=== PATIENT | male | born 1965 | race Caucasian/White ===

== ENCOUNTER 2020-04-22 12:18 | Observation (INO) | payer BC ==
[~2020-04-22] VITALS: Ht 172 cm; Wt 75.4 kg
--- OUTSIDE RECORDS SUMMARY | 2020-04-22 13:00 | XMS REPORT | Continuity of Care Document ---
Author Organization Unknown Address Unknown Phone Unavailable Allergies There is no data. Medications There is no data. Problems Date Dx Coded Attending Type Code Diagnosis Diagnosed By 11/05/2014 Ot 592.0 04/07/2015 Ot 592.0 09/20/2015 Ot 592.0 02/10/2016 Ot 592.0 CALC ULUS OF KIDNEY 02/10/2016 Ot 592.0 CALC ULUS OF KIDNEY 04/24/2018 Ot 592.0 CALC ULUS OF KIDNEY Procedures There is no data. Results There is no data. Encounters ACCT No. Visit Date/Time Discharge Status Pt. Type Provider Facility Loc./Unit Complaint [id number] 04/22/2020 12:20:[address] Emergency CEDRIC ARAIZA, BRIGHT Ambrosio [facility] ER R LEG RED SWOLLEN [id number] 01/30/2013 07:02:00 Document Registration
[2020-04-22 13:17] LABS: BASOPHILS % (AUTO) 0 % (0-10); EOSINOPHILS # (AUTO) 0.3 10^3/uL (0.0-0.3); EOSINOPHILS % (AUTO) 2 % (0-10); HEMATOCRIT 40 % (40-54); HEMOGLOBIN 13.7 G/DL (13.3-17.7); LYMPHOCYTES # (AUTO) 1.9 X 10^3 (1.0-4.0); LYMPHOCYTES % (AUTO) 18 % (12-44); MEAN CORPUSCULAR HEMOGLOBIN 30 PG (25-34); MEAN CORPUSCULAR HGB CONC 34 G/DL (32-36); MEAN CORPUSCULAR VOLUME 88 FL (80-99); MEAN PLATELET VOLUME 11.4 FL (7.4-10.4); MONOCYTES # (AUTO) 1.2 X 10^3 (0.0-1.0); MONOCYTES % (AUTO) 12 % (0-12); NEUTROPHILS # (AUTO) 7.2 X 10^3 (1.8-7.8); NEUTROPHILS % (AUTO) 68 % (42-75); PLATELET COUNT 228 10^3/uL (130-400); RED CELL DISTRIBUTION WIDTH 12.8 % (10.0-14.5); WHITE BLOOD COUNT 10.7 10^3/uL (4.3-11.0)
[2020-04-22 13:20] LABS: ALBUMIN 3.8 GM/DL (3.2-4.5); CHLORIDE 105 MMOL/L (98-107); POTASSIUM 3.9 MMOL/L (3.6-5.0); SODIUM 142 MMOL/L (135-145)
[2020-04-22 13:21] LABS: CALCIUM 8.9 MG/DL (8.5-10.1)
[2020-04-22 13:23] LABS: GLUCOSE 94 MG/DL (70-105); TOTAL PROTEIN 6.9 GM/DL (6.4-8.2)
[2020-04-22 13:24] LABS: CARBON DIOXIDE 26 MMOL/L (21-32)
[2020-04-22 13:25] LABS: BILIRUBIN,TOTAL 0.5 MG/DL (0.1-1.0)
[2020-04-22 13:26] LABS: ALKALINE PHOSPHATASE 86 U/L (40-136); CREATININE SERUM 1.04 MG/DL (0.60-1.30); GFR ESTIMATED > 60
[2020-04-22 13:27] LABS: BUN/CREATININE RATIO 13
[2020-04-22 13:29] LABS: ALANINE AMINOTRANSFERASE 62 U/L (0-55)
--- NOTE | 2020-04-22 13:31 | NUR ---
DR PATHAK HERE TO SEE PT
[2020-04-22] MEDS ORDERED: NS IV 1000 ML 1,000 ML IV SCH (13:43)
[2020-04-22] MEDS ORDERED: PIPERACILLIN/TAZOBACTAM (BULK) 4.5 GM in NS (IVPB) 100 ML IV ONE (14:00)
--- NOTE | 2020-04-22 14:00 | ED Lower Extremity ---
General Chief Complaint: Lower Extremity Stated Complaint: R LEG RED SWOLLEN Source: patient Exam Limitations: no limitations History of Present Illness Date Seen by Provider: Apr 22, 2020 Time Seen by Provider: 13:23 Initial Comments Patient presents ER by private conveyance with chief complaint that her 4 days ago he noticed some redness swelling heat and tenderness coming on the right hernandez. No drainage. He went to Dr. Johnson who put him on Rocephin and some type of cephalosporin pill. Be followed up yesterday with Dr. Thomas, General Surgery who lanced the wound but did not get any purulence out. Only to get sanguis drainage. Thought the wound looked like it might of been from a spider bite to put him on dapsone. Patient said it was getting worse spreading up his thigh and having some more pain today so he was directed to the ER by Dr. Thomas. Dr. Thomas came to the ER and saw the patient. He agrees redness and swelling is worse today than before. It is not circumferential. Patient does not have numbness or tingling in his foot. He has full range of motion of his toes. He does not have any significant medical history nor take any other medications besides the antibiotics. No fevers or chills nausea vomiting or diarrhea. Allergies and Home Medications Allergies Coded Allergies: No Known Drug Allergies (Unverified , 04/22/20) Patient Home Medication List Home Medication List Reviewed: Yes Review of Systems Constitutional: No chills, No diaphoresis, No fever, No malaise EENTM: No ear pain, No eye pain Respiratory: No cough, No short of breath Cardiovascular: No Hx of Intervention, No syncope, No vascular heart diseas Gastrointestinal: No abdominal pain, No constipation, No diarrhea, No nausea Genitourinary: No discharge, No dysuria Musculoskeletal: No back pain, No joint pain Skin: see HPI All Other Systems Reviewed Negative Unless Noted: Yes Past Axjxakh-Kkqyvf-Ztuyso Hx Patient Social History Alcohol Use: Denies Use Recreational Drug Use: No Smoking Status: Never a Smoker Recent Foreign Travel: No Contact w/Someone Who Travel: No Physical Exam Vital Signs Vital Signs - First Documented 04/22/20 12:30 Temp 36.7 Pulse 64 Resp 18 B/P (MAP) 130/81 (97) Pulse Ox 98 Capillary Refill : Height, Weight, BMI Height: '" Weight: lbs. oz. kg; BMI Method: General Appearance: WD/WN, mild distress HEENT: PERRL/EOMI, pharynx normal Cardiovascular: normal peripheral pulses, regular rate, rhythm Respiratory: no respiratory distress, no accessory muscle use Legs: left leg non-tender, left leg normal inspection, left leg normal range of motion, left leg no evidence of injury; right leg pain, right leg soft tissue tenderness, right leg swelling (the erythema with a previous incision site roughly 1 cm on the anterior hernandez mid shaft right leg. Fluctuance palpable but no purulence expressed. Erythema marked with a marker and spreading up posterior thigh approximately 4-5 cm.) Progress/Results/Core Measures Results/Orders Lab Results Laboratory Tests Test 04/22/20 12:55 Range/Units White Blood Count 10.7 4.3-11.0 10^3/uL Red Blood Count 4.59 4.35-5.85 10^6/uL Hemoglobin 13.7 13.3-17.7 G/DL Hematocrit 40 40-54 % Mean Corpuscular Volume 88 80-99 FL Mean Corpuscular Hemoglobin 30 25-34 PG Mean Corpuscular Hemoglobin Concent 34 32-36 G/DL Red Cell Distribution Width 12.8 10.0-14.5 % Platelet Count 228 130-400 10^3/uL Mean Platelet Volume 11.4 H 7.4-10.4 FL Neutrophils (%) (Auto) 68 42-75 % Lymphocytes (%) (Auto) 18 12-44 % Monocytes (%) (Auto) 12 0-12 % Eosinophils (%) (Auto) 2 0-10 % Basophils (%) (Auto) 0 0-10 % Neutrophils # (Auto) 7.2 1.8-7.8 X 10^3 Lymphocytes # (Auto) 1.9 1.0-4.0 X 10^3 Monocytes # (Auto) 1.2 H 0.0-1.0 X 10^3 Eosinophils # (Auto) 0.3 0.0-0.3 10^3/uL Basophils # (Auto) 0.0 0.0-0.1 10^3/uL Sodium Level 142 135-145 MMOL/L Potassium Level 3.9 3.6-5.0 MMOL/L Chloride Level 105 98-107 MMOL/L Carbon Dioxide Level 26 21-32 MMOL/L Anion Gap 11 5-14 MMOL/L Blood Urea Nitrogen 14 7-18 MG/DL Creatinine 1.04 0.60-1.30 MG/DL Estimat Glomerular Filtration Rate > 60 BUN/Creatinine Ratio 13 Glucose Level 94 70-105 MG/DL Calcium Level 8.9 8.5-10.1 MG/DL Corrected Calcium 9.1 8.5-10.1 MG/DL Total Bilirubin 0.5 0.1-1.0 MG/DL Aspartate Amino Transf (AST/SGOT) 45 H 5-34 U/L Alanine Aminotransferase (ALT/SGPT) 62 H 0-55 U/L Alkaline Phosphatase 86 40-136 U/L Total Protein 6.9 6.4-8.2 GM/DL Albumin 3.8 3.2-4.5 GM/DL My Orders Orders - BRIGHT STEELE Cbc With Automated Diff (04/22/20 13:10) Comprehensive Metabolic Panel (04/22/20 13:10) Blood Culture (04/22/20 13:10) Ed Iv/Invasive Line Start (04/22/20 13:43) Ns Iv 1000 Ml (Sodium Chloride 0.9%) (04/22/20 13:43) Vital Signs/I&O 04/22/20 12:30 Temp 36.7 Pulse 64 Resp 18 B/P (MAP) 130/81 (97) Pulse Ox 98 Progress Progress Note : Time: 13:58 Progress Note Aseptic vital signs. She has been on 3 days of outpatient antibiotics including Rocephin. Plan to put him on vancomycin for MRSA coverage and Zosyn and observe him overnight. Internal Medicine can downgrade this in the morning if he is clinically improving. Labs are unremarkable. Departure Communication (Admissions) Time/Spoke to Admitting Phy: 13:50 Discussed the case with Dr. Campa and he agrees to observe the patient on antibiotics. Time/Spoke to Consulting Phy: 13:30 Dr. Thomas agrees to consult. He says he will check out to Dr. Stoney parham. Impression Primary Impression: Cellulitis and abscess of leg, except foot Disposition: ADMITTED INPATIENT Condition: Stable Admissions Decision to Admit Reason: Admit from ER (General) Decision to Admit/Date: Apr 22, 2020 Time/Decision to Admit Time: 13:30 Departure-Patient Inst. Referrals: NO,LOCAL PHYSICIAN (PCP/Family) Primary Care Physician BRIGHT STEELE Apr 22, 2020 14:00
[2020-04-22] MEDS: VANCOMYCIN INJECTION 750 MG in NS (IVPB) 250 ML IV SCH ×2 (14:04→15:22)
--- NOTE | 2020-04-22 14:31 | NUR ---
REPORT TO 4TH FLOOR RN
--- OUTSIDE RECORDS SUMMARY | 2020-04-22 14:47 | XMS REPORT | Continuity of Care Document ---
Author Organization Unknown Address Unknown Phone Unavailable Allergies Active Description Code Type Severity Reaction Onset Reported/Identified Relationship to Patient Clinical Status Yes No Known Drug Allergies [id number] Drug Allergy Unknown N/A 04/22/2020 Medications There is no data. Problems Date Dx Coded Attending Type Code Diagnosis Diagnosed By 11/05/2014 Ot 592.0 04/07/2015 Ot 592.0 09/20/2015 Ot 592.0 02/10/2016 Ot 592.0 CALC ULUS OF KIDNEY 02/10/2016 Ot 592.0 CALC ULUS OF KIDNEY 04/24/2018 Ot 592.0 CALC ULUS OF KIDNEY Procedures There is no data. Results Test Result Range Complete blood count (CBC) with automate d white blood cell (WBC) differential - 04/22/20 12:55 Blood leukocytes automated count (number/volume) 10.7 10*3/uL 4.3-11.0 Blood erythrocytes automated count (number/volume) 4.59 10*6/uL 4.35-5.85 Venous blood hemoglobin measurement (mass/volume) 13.7 g/dL 13.3-17.7 Blood hematocrit (volume fraction) 40 % 40-54 Automated erythrocyte mean corpuscular volume 88 [ foz_us] 80-99 Automated erythrocyte mean corpuscular h emoglobin (mass per erythrocyte) 30 pg 25-34 Automated erythrocyte mean corpuscular h emoglobin concentration measurement (mass/volume) 34 g/dL 32-36 Automated erythrocyte distribution width ratio 12. 8 % 10.0- 14.5 Automated blood platelet count (count/volume) 228 10*3/uL 130-400 Automated blood platelet mean volume measurement 11.4 [foz_us] 7.4-10.4 Automated blood neutrophils/100 leukocytes 68 % 42-75 Automated blood lymphocytes/100 leukocytes 18 % 12-44 Blood monocytes/100 leukocytes 12 % 0-12 Automated blood eosinophils/100 leukocytes 2 % 0-10 Automated blood basophils/100 leukocytes 0 % 0-10 Blood neutrophils automated count (number/volume) 7.2 10*3 1.8-7.8 Blood lymphocytes automated count (number/volume) 1.9 10*3 1.0-4.0 Blood monocytes automated count (number/volume) 1. 2 10*3 0.0-1.0 Automated eosinophil count 0.3 10*3/uL 0 .0-0.3 Automated blood basophil count (count/volume) 0.0 10*3/uL 0.0-0.1 Comprehensive metabolic panel - 04/22/20 12:55 Serum or plasma sodium measurement (moles/volume) 142 mmol/L 135-145 Serum or plasma potassium measurement (moles/volume) 3.9 mmol/L 3.6-5.0 Serum or plasma chloride measurement (moles/volume) 105 mmol/L 98-107 Carbon dioxide 26 mmol/L 21-32 Serum or plasma anion gap determination (moles/volume) 11 mmol/L 5-14 Serum or plasma urea nitrogen measurement (mass/volume ) 14 mg/dL 7-18 Serum or plasma creatinine measurement (mass/volume) 1.04 mg/dL 0.60-1.30 Serum or plasma urea nitrogen/creatinine mass ratio 13 NRG Serum or plasma creatinine measurement w ith calculation of estimated glomerular filtration rate > NRG Serum or plasma glucose measurement (mass/volume) 94 mg/dL 70-105 Serum or plasma calcium measurement (mass/volume) 8.9 mg/dL 8.5-10.1 Serum or plasma total bilirubin measurement (mass/volu me) 0.5 mg/dL 0.1-1.0 Serum or plasma alkaline phosphatase tracy surement (enzymatic activity/volume) 86 U/L 40-136 Serum or plasma aspartate aminotransfera se measurement (enzymatic activity/volume) 45 U/L 5-34 Serum or plasma alanine aminotransferase measurement (enzymatic activity/volume) 62 U/L 0-55 Serum or plasma protein measurement (mass/volume) 6.9 g/dL 6.4-8.2 Serum or plasma albumin measurement (mass/volume) 3.8 g/dL 3.2-4.5 CALCIUM CORRECTED 9.1 mg/dL 8.5-10.1 Encounters ACCT No. Visit Date/Time Discharge Status Pt. Type Provider Facility Loc./Unit Complaint [id number] 04/22/2020 13:50:[address] Inpatient NESSA ARAIZA, ZHANG Gomez [facility] 4TH CELLULITIS RLE [id number] 01/30/2013 07:02:00 Document Registration
[2020-04-22] MEDS ORDERED: NS (IVPB) 250 ML ONE (14:58)
[2020-04-22] MEDS ORDERED: VANCOMYCIN 750 MG/VIAL IV ONE (14:58)
--- NOTE | 2020-04-22 15:00 | NUR ---
KAREN JEFF admitted to room 414-1, with an admitting diagnosis of RIGHT LOWER LEG CELLULITIS, on 04/22/20 from ER via W/C, accompanied by STAFF.KAREN AGUILAR introduced to surroundings, call light, bed controls, phone, TV, temperature control, lights, meal times, smoking policy, visitor policy, side rail policy, bathrooms and showers. Patient Rights given to patient in the handbook.KAREN AGUILAR verbalizes understanding that [facility] is not responsible for the loss or damage to any personal effects or valuables that are kept in the patients posession during their hospitalization. The following Patient Care Plans were discussed with the PT: Discharge Planning, PAIN CONTROL,IV THERAPY, and TESTS AND PROCEDURES. KAREN AGUILAR verbalizes understanding of Interdisciplinary Patient Education. Patient and/or family were informed about the Rapid Response Team and its purpose.
[2020-04-22 15:05] VITALS: BP 123/86
[2020-04-22 15:12] VITALS: BP 137/85
--- NOTE | 2020-04-22 15:23 | NUR ---
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 Tile Inspector offered blessing.
--- NOTE | 2020-04-22 15:32 | Consultation - Surgery ---
History of Present Illness History of Present Illness Patient Consulted On(dakotah/time) 04/22/20 15:22 Date Seen by Provider: Apr 22, 2020 Time Seen by Provider: 14:00 History of Present Illness Consult for cellulitis right lower extremity, requested by Dr. Triana Patient is a 54 year old male known to me. He saw Dr Johnson 4 days ago for cellulitis of right lower extremity. Got a shot of Rocephin and placed on oral antibiotics. Had questionable fluctuant area on right medial as of tibia so yesterday we made a small incision over the area with no purulent material, just slight serosanguineous drainage. Redness and swelling has increased in the right lower extremity, now extending to just above knee. Discomfort in the area has slightly increased as well. Not sure why if anything causes to be worse, or better. 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 Denies n/v fever sweats chills shortness of breath or chest pain. Allergies and Home Medications Allergies Coded Allergies: No Known Drug Allergies (Unverified , 04/22/20) Patient Home Medication List Home Medication List Reviewed: Yes Past Mhrnqbv-Ojhmtz-Anzxkf Hx Patient Social History Alcohol Use: Rarely Uses Recreational Drug Use: No Smoking Status: Never a Smoker Recent Foreign Travel: No Contact w/Someone Who Travel: No Recent Infectious Disease Expo: No Recent Hopitalizations: No Seasonal Allergies Seasonal Allergies: No Respiratory History of Respiratory Disorde: No Cardiovascular History of Cardiac Disorders: No Neurological History of Neurological Disord: No Genitourinary History of Genitourinary Disor: No Gastrointestinal History of Gastrointestinal Di: No Musculoskeletal History of Musculoskeletal Dis: No Endocrine History of Endocrine Disorders: No HEENT History of HEENT Disorders: No Cancer History of Cancer: No Psychosocial History of Psychiatric Problem: No Integumentary History of Skin or Integumenta: No Blood Transfusions History of Blood Disorders: No Adverse Reaction to a Blood Tr: No Family Medical History Significant Family History: No Pertinent Family Hx Review of Systems-General Constitutional: No chills, No diaphoresis Respiratory: No cough, No dyspnea on exertion Cardiovascular: No chest pain, No palpitations, No syncope Gastrointestinal: No abdominal pain, No constipation Genitourinary: No decreased output, No discharge, No hematuria Musculoskeletal: No back pain, No joint pain; other (right muscle pain) Skin: change in color; No change in hair/nails Psychiatric/Neurological: Denies Anxiety, Denies Depressed, Denies Emotional Problems All Other Systems Reviewed Negative Unless Noted: Yes Physical Exam-General Problems Physical Exam Vital Signs Vital Signs - First Documented 04/22/20 04/22/20 12:30 15:12 Temp 36.7 Pulse 64 Resp 18 B/P (MAP) 130/81 (97) Pulse Ox 98 O2 Delivery Room Air Capillary Refill : Less Than 3 Seconds General Appearance: WD/WN, no apparent distress HEENT: PERRL/EOMI, normal ENT inspection Neck: non-tender, full range of motion, supple, normal inspection Respiratory: chest non-tender, no respiratory distress, no accessory muscle use Cardiovascular: regular rate, rhythm, no edema Gastrointestinal: non tender, soft, no pulsatile mass Rectal: deferred Back: no CVA tenderness, no vertebral tenderness Extremities: swelling (right) Neurologic/Psychiatric: keeper helper II-XII nml as tested (a), no motor/sensory deficits, alert, normal mood/affect, oriented x 3 Skin: No normal color; ecchymosis, other (erythema right lower extremity approximately 6x 4 cm of red/purple discoloration in center of erthema medial to tibia, small 1 cm skin opening, no drainage, mild swellowing) Lymphatic: no adenopathy Data Review Labs Laboratory Tests 04/22/20 12:55: White Blood Count 10.7, Red Blood Count 4.59, Hemoglobin 13.7, Hematocrit 40, Mean Corpuscular Volume 88, Mean Corpuscular Hemoglobin 30, Mean Corpuscular Hemoglobin Concent 34, Red Cell Distribution Width 12.8, Platelet Count 228, Mean Platelet Volume 11.4H, Neutrophils (%) (Auto) 68, Lymphocytes (%) (Auto) 18, Monocytes (%) (Auto) 12, Eosinophils (%) (Auto) 2, Basophils (%) (Auto) 0, Neutrophils # (Auto) 7.2, Lymphocytes # (Auto) 1.9, Monocytes # (Auto) 1.2H, Eosinophils # (Auto) 0.3, Basophils # (Auto) 0.0, Sodium Level 142, Potassium Level 3.9, Chloride Level 105, Carbon Dioxide Level 26, Anion Gap 11, Blood Urea Nitrogen 14, Creatinine 1.04, Estimat Glomerular Filtration Rate > 60, BUN/Creatinine Ratio 13, Glucose Level 94, Calcium Level 8.9, Corrected Calcium 9.1, Total Bilirubin 0.5, Aspartate Amino Transf (AST/SGOT) 45H, Alanine Aminotransferase (ALT/SGPT) 62H, Alkaline Phosphatase 86, Total Protein 6.9, Albumin 3.8 Assessment/Plan Assessment/Plan Assessment/Plan cellulitis right lower extremity failed outpatient management with worsening erythema on oral antibiotics, feel he should be on IV abx Vanc/Zosyn started No surgical intervention at this time. RENEE PATHAK DO Apr 22, 2020 15:32
[2020-04-22] MEDS ORDERED: CATHETER FLUSH 10 ML SYR IV PRN (15:45)
[2020-04-22] MEDS ORDERED: ACETAMINOPHEN 500 MG TAB (TYLENOL) PO PRN (15:45)
[2020-04-22] MEDS ORDERED: ONDANSETRON 4 MG/2 ML (SDV) Z0FRAN IV PRN (15:45)
--- NOTE | 2020-04-22 15:49 | NUR ---
CR 1.04; CR CL > 60; WT 75.4 KG; VANCO 1750 MG GIVEN IN ER; CONTINUE WITH VANCO 1000 MG IV Q12H; TROUGH AFTER 4TH DOSE
[2020-04-22] MEDS ORDERED: ANTACID SUSP 30 ML UDC (MYLANTA) PO PRN (16:00)
[2020-04-22] MEDS ORDERED: HYDROcodone/APAP 5 MG/325 MG (LORTAB) TAB PO PRN (16:00)
[2020-04-22 19:27] VITALS: BP 112/61
[2020-04-22] MEDS: PIPERACILLIN/TAZO 4.5 GM/NS 100 ML IV SCH ×2 (21:15)
[2020-04-22] MEDS: CATHETER FLUSH 10 ML SYR IV SCH (22:06)
[2020-04-23] VITALS: BP 106/58
[2020-04-23] MEDS: VANCOMYCIN 1 GM/NS 250 ML IVPB IV SCH ×4 (02:19→13:56)
[2020-04-23 04:00] VITALS: BP 123/69
[2020-04-23 05:28] LABS: BASOPHILS % (AUTO) 0 % (0-10); EOSINOPHILS # (AUTO) 0.3 10^3/uL (0.0-0.3); EOSINOPHILS % (AUTO) 3 % (0-10); HEMATOCRIT 39 % (40-54); HEMOGLOBIN 13.1 G/DL (13.3-17.7); LYMPHOCYTES # (AUTO) 1.8 X 10^3 (1.0-4.0); LYMPHOCYTES % (AUTO) 17 % (12-44); MEAN CORPUSCULAR HEMOGLOBIN 29 PG (25-34); MEAN CORPUSCULAR HGB CONC 33 G/DL (32-36); MEAN CORPUSCULAR VOLUME 88 FL (80-99); MEAN PLATELET VOLUME 11.5 FL (7.4-10.4); MONOCYTES # (AUTO) 1.2 X 10^3 (0.0-1.0); MONOCYTES % (AUTO) 11 % (0-12); NEUTROPHILS # (AUTO) 7.5 X 10^3 (1.8-7.8); NEUTROPHILS % (AUTO) 70 % (42-75); PLATELET COUNT 238 10^3/uL (130-400); RED CELL DISTRIBUTION WIDTH 12.6 % (10.0-14.5); WHITE BLOOD COUNT 10.8 10^3/uL (4.3-11.0)
[2020-04-23] MEDS: PIPERACILLIN/TAZO 4.5 GM/NS 100 ML IV SCH ×6 (05:46→22:16)
[2020-04-23 05:55] LABS: CALCIUM 8.9 MG/DL (8.5-10.1)
[2020-04-23 05:59] LABS: CREATININE SERUM 1.29 MG/DL (0.60-1.30)
[2020-04-23] MEDS: CATHETER FLUSH 10 ML SYR IV SCH ×3 (06:01→22:16)
[2020-04-23 08:00] VITALS: BP 127/67
--- NOTE | 2020-04-23 11:18 | Progress Note ---
Subjective Date Seen by a Provider: Apr 23, 2020 Time Seen by a Provider: 10:30 Subjective/Events-last exam Patient seen with Dr. Lua. Patient reports the RLE is improving. Having little pain but is tolerable with pain meds. Did have a temp last night, but pain reports that he gets hot after taking pain medications and was sweating. Denies any drainage. Objective Exam Vital Signs Date Time Temp Pulse Resp B/P (MAP) Pulse Ox O2 Delivery O2 Flow Rate FiO2 04/23/20 09:00 93 Room Air 04/23/20 08:00 36.4 52 20 127/67 (87) 96 Room Air 04/23/20 04:00 37.6 59 18 123/69 (87) 92 Room Air 04/23/20 00:00 37.8 57 18 106/58 (74) 95 Room Air 04/22/20 21:00 93 Room Air 04/22/20 19:27 38.1 64 18 112/61 (78) 93 Room Air 04/22/20 17:43 98 Room Air 04/22/20 15:12 36.9 62 18 137/85 96 Room Air 04/22/20 15:05 36.9 78 18 123/86 (98) 99 Room Air 04/22/20 14:50 64 18 122/78 98 04/22/20 12:30 36.7 64 18 130/81 (97) 98 I & O 04/23/20 07:00 Intake Total 2965 ml Balance 2965 ml Capillary Refill : Less Than 3 Seconds General Appearance: No Apparent Distress, WD/WN Neck: Normal Inspection, Non Tender, Supple Respiratory: Normal Breath Sounds, No Accessory Muscle Use, No Respiratory Distress Cardiovascular: Regular Rate, Rhythm, No Edema Gastrointestinal: normal bowel sounds, non tender, soft Extremity: Normal Range of Motion, Other (The area of the RLE does still have some redness and erythema but is improved from previous outline. Mild edema still noted. No drainage) Neurologic/Psychiatric: Alert, Oriented x3 Skin: Normal Color, Warm/Dry Results Lab Laboratory Tests 04/22/20 12:55: White Blood Count 10.7, Red Blood Count 4.59, Hemoglobin 13.7, Hematocrit 40, Mean Corpuscular Volume 88, Mean Corpuscular Hemoglobin 30, Mean Corpuscular H emoglobin Concent 34, Red Cell Distribution Width 12.8, Platelet Count 228, Mean Platelet Volume 11.4H, Neutrophils (%) (Auto) 68, Lymphocytes (%) (Auto) 18, Monocytes (%) (Auto) 12, Eosinophils (%) (Auto) 2, Basophils (%) (Auto) 0, Ne utrophils # (Auto) 7.2, Lymphocytes # (Auto) 1.9, Monocytes # (Auto) 1.2H, Eosinophils # (Auto) 0.3, Basophils # (Auto) 0.0, Sodium Level 142, Potassium Level 3.9, Chloride Level 105, Carbon Dioxide Level 26, Anion Gap 11, Blood Urea Nitrogen 14, Creatinine 1.04, Estimat Glomerular Filtration Rate > 60, BUN/Creatinine Ratio 13, Glucose Level 94, Calcium Level 8.9, Corrected Calcium 9.1, Total Bilirubin 0.5, Aspartate Amino Transf (AST/SGOT) 45H, Alanine A minotransferase (ALT/SGPT) 62H, Alkaline Phosphatase 86, Total Protein 6.9, Albumin 3.8 04/23/20 05:11: White Blood Count 10.8, Red Blood Count 4.45, Hemoglobin 13.1L, Hematocrit 39L, Mean Corpuscular Volume 88, Mean Corpuscular Hemoglobin 29, Mean Corpuscular Hemoglobin Concent 33, Red Cell Distribution Width 12.6, Platelet Count 238, Mean Platelet Volume 11.5H, Neutrophils (%) (Auto) 70, Lymphocytes (%) (Auto) 17, Monocytes (%) (Auto) 11, Eosinophils (%) (Auto) 3, Basophils (%) (Auto) 0, Neutrophils # (Auto) 7.5, Lymphocytes # (Auto) 1.8, Monocytes # (Auto) 1.2H, Eosinophils # (Auto) 0.3, Basophils # (Auto) 0.0, Sodium Level 141, Potassium Level 4.0, Chloride Level 106, Carbon Dioxide Level 25, Anion Gap 10, Blood Urea Nitrogen 11, Creatinine 1.29, Estimat Glomerular Filtration Rate 58, BUN/Creatinine Ratio 9, Glucose Level 98, Calcium Level 8.9 Assessment/Plan Assessment/Plan Assess & Plan/Chief Complaint A 54 year old male with RLE cellulitis VSS WBC 10.8 Cellulitis improving and no abscess identified Continue IV abx, pain and nausea medications Clinical Quality Measures DVT/VTE Risk/Contraindication: Risk Factor Score Per Nursin RFS Level Per Nursing on Admit: 2=Moderate THANG STARR CASINO ENFORCEMENT AGENT Apr 23, 2020 11:18
[2020-04-23 12:00] VITALS: BP 106/59
--- NOTE | 2020-04-23 12:01 | NUR ---
provided prayer and Communion.
--- NOTE | 2020-04-23 12:28 | History & Physical-Hospitalist ---
History of Present Illness HPI/Chief Complaint Initially the patient reports couple weeks ago noticing increased dryness and itching of his legs especially the right one down around the ankle and lower tibial area. Last Saturday he noted a little pain and some swelling in the mid tibial area got progressively worse and he presented to Dr. Gregg's office on Saturday where he had evidence for what sounds like an abscess. He was concerned that it might be a spider bite but was not aware of any insect bites and not seen any spiders. He was started on cephalexin but swelling got worse and he was referred to Dr. Thomas who attempted to ryder nodule in the distal tibia from description they were unable to get the purulent material. On cephalexin swelling up progressively worse he had now some chills and fever Saturday afternoon or early evening which prompted him to come to the hospital. He also started noticing redness moving up to the medial thigh area with increasing pain around the nodule sided redness spreading out from it as well. He denied any drainage and is had no past history of MRSA skin infection or any other type of infection. He is typically healthy on no regular medication and works out on a regular basis. He has not had any known exposure to COVID or anyone with MRSA that he is aware of. Date Seen 04/23/20 Time Seen by a Provider: 11:00 Attending Physician Zhang Campa MD PCP No,Local Physician Referring Physician Date of Admission Apr 22, 2020 at 13:50 Home Medications & Allergies Home Medications Reviewed patient Home Medication Reconciliation performed by pharmacy medication reconciliations dental laboratory technician and/or nursing. Patients Allergies have been reviewed. Allergies Allergies Coded Allergies No Known Drug Allergies (Unverified04/22/20) Past Uwhytko-Rqfyjv-Bjanom Hx Past Med/Social Hx: Reviewed and Corrections made Patient Social History Alcohol Use: Denies Use Alcohol Beverage of Choice: Beer Recreational Drug Use: No Smoking Status: Never a Smoker Physical Abuse Screen: No Sexual Abuse: No Recent Foreign Travel: No Contact w/other who traveled: No Recent Hopitalizations: No Recent Infectious Disease Expo: No Seasonal Allergies Seasonal Allergies: No Past Medical History History of Blood Disorders: No Adverse Reaction to Blood Velasquez: No Family History No Pertinent Family Hx Review of Systems Constitutional: see HPI, chills, diaphoresis, fever, weakness Physical Exam Physical Exam Vital Signs Vital Signs - First Documented 04/22/20 04/22/20 12:30 15:05 Temp 36.7 Pulse 64 Resp 18 B/P (MAP) 130/81 (97) Pulse Ox 98 O2 Delivery Room Air Capillary Refill : Less Than 3 Seconds Height, Weight, BMI Height: '" Weight: lbs. oz. kg; 25.48 BMI Method: General Appearance: No Apparent Distress, WD/WN HEENT: PERRL/EOMI, TMs Normal, Normal ENT Inspection, Pharynx Normal, Moist Mucous Membranes Respiratory: Chest Non Tender, Lungs Clear, Normal Breath Sounds, No Accessory Muscle Use, No Respiratory Distress Cardiovascular: Regular Rate, Rhythm, No Edema, No Gallop, No JVD, No Murmur, Normal Peripheral Pulses Gastrointestinal: Normal Bowel Sounds, No Organomegaly, No Pulsatile Mass, Non Tender, Soft Extremity: Other (2 x 3 cm erythematous nodule with a small adjacent incision which is erythematous and slightly tender. There is no evidence of for drainage there is erythema extending out from this man extending up the right medial calf. There appears to be less erythema than what is marked out by the emergency room physician last night and he reports decrease in pain and swelling. Left lower extremity is unremarkable no skin is a dry no evidence for tenia pedis is noted. Left lower extremity is unremarkable with no swelling) Neurologic/Psychiatric: Alert, Oriented x3, No Motor/Sensory Deficits, Normal Mood/Affect Results Results/Procedures Labs Laboratory Tests 04/22/20 12:55 04/23/20 05:11 Patient resulted labs reviewed. Assessment/Plan Admission Diagnosis A/P 1. Cellulitis with ascending lymphangitis and sepsis not severe suspect underlying staph continue vancomycin and for now continue Zosyn and check outpatient culture results. Blood cultures pending. 2. Patient low risk for DVT risk of anticoagulation outweigh potential benefits due to lower extremity cellulitis not a candidate for SCDs. Admission Status: Inpatient Order (span 2 midnights) Reason for Inpatient Admission: As per above. Clinical Quality Measures DVT/VTE Risk/Contraindication: Risk Factor Score Per Nursin RFS Level Per Nursing on Admit: 2=Moderate Copy Copies To 1: ZHANG CAMPA MD, MARK D MD Apr 23, 2020 12:28
[2020-04-23] MEDS ORDERED: TROUGH ORDER-PHARMACY XX NR (13:00)
[2020-04-23] MEDS: IBUPROFEN 800 MG (MOTRIN) TAB PO PRN (14:02)
[2020-04-23 16:12] VITALS: BP 119/65
[2020-04-23 19:59] VITALS: BP 117/67
[2020-04-24] VITALS: BP 124/75
[2020-04-24] MEDS: VANCOMYCIN 1 GM/NS 250 ML IVPB IV SCH ×4 (02:23→13:34)
[2020-04-24 04:00] VITALS: BP 129/76
[2020-04-24] MEDS: IBUPROFEN 800 MG (MOTRIN) TAB PO PRN (06:07)
[2020-04-24] MEDS: PIPERACILLIN/TAZO 4.5 GM/NS 100 ML IV SCH ×2 (06:07)
[2020-04-24] MEDS: CATHETER FLUSH 10 ML SYR IV SCH (06:07)
[2020-04-24 06:11] LABS: BASOPHILS % (AUTO) 0 % (0-10); EOSINOPHILS # (AUTO) 0.4 10^3/uL (0.0-0.3); EOSINOPHILS % (AUTO) 4 % (0-10); HEMATOCRIT 40 % (40-54); HEMOGLOBIN 13.5 G/DL (13.3-17.7); LYMPHOCYTES # (AUTO) 1.7 X 10^3 (1.0-4.0); LYMPHOCYTES % (AUTO) 19 % (12-44); MEAN CORPUSCULAR HEMOGLOBIN 29 PG (25-34); MEAN CORPUSCULAR HGB CONC 34 G/DL (32-36); MEAN CORPUSCULAR VOLUME 87 FL (80-99); MEAN PLATELET VOLUME 11.2 FL (7.4-10.4); MONOCYTES # (AUTO) 1.1 X 10^3 (0.0-1.0); MONOCYTES % (AUTO) 11 % (0-12); NEUTROPHILS % (AUTO) 66 % (42-75); PLATELET COUNT 271 10^3/uL (130-400); RED CELL DISTRIBUTION WIDTH 12.9 % (10.0-14.5); WHITE BLOOD COUNT 9.2 10^3/uL (4.3-11.0)
[2020-04-24 08:00] VITALS: BP 123/70
[2020-04-24 08:20] LABS: BUN/CREATININE RATIO 10; CALCIUM 8.9 MG/DL (8.5-10.1); CARBON DIOXIDE 22 MMOL/L (21-32); CHLORIDE 108 MMOL/L (98-107); CREATININE SERUM 1.14 MG/DL (0.60-1.30); GFR ESTIMATED > 60; GLUCOSE 100 MG/DL (70-105); SODIUM 142 MMOL/L (135-145)
--- NOTE | 2020-04-24 10:00 | NUR ---
DR. RAMÍREZ HERE TO SEE PATIENT. PLAN FOR DC TODAY. PATIENT DENIES MUCH LEG PAIN, ADMITS TO SORENESS WHEN WALKING ON RIGHT LEG. STATES SWELLING DOWN. AREA SHRINKING FROM OUTLINED AREA ON RIGHT LOWER LEG.
[2020-04-24] MEDS ORDERED: HYDR-83 PO (10:31)
[2020-04-24] MEDS ORDERED: LEVO500T2 PO (10:31)
[2020-04-24] MEDS ORDERED: SULF1TAB35 PO (10:31)
--- NOTE | 2020-04-24 10:32 | Discharge Inst-Surgical ---
D/C Lap Instructions-NIMESHO Reconcile Patient Problems Problems Reviewed?: Yes New, Converted, or Re-Newed RX: RX on Chart Follow Up Appt as needed or not improving Activity as tolerated No driving while on pain medications Regular Diet Symptoms to Report: Fever over 101 degree F, Nausea/Vomiting Infection Signs and Symptoms to report: Increased redness, Foul odor of wound, Increased drainage Bathing instructions: May shower Operative Area Clean/Dry; Keep incision clean/dry If any problems/questions: Contact your physician or go to Emergency Room THANG STARR APRN Apr 24, 2020 10:32
--- NOTE | 2020-04-24 10:43 | Progress Note ---
Subjective Date Seen by a Provider: Apr 24, 2020 Time Seen by a Provider: 09:30 Subjective/Events-last exam Patient seen with Dr. Lua. Patient reports that RLE continues to improve. Denies any fever/chills as well as no pain currently. Objective Exam Vital Signs Date Time Temp Pulse Resp B/P (MAP) Pulse Ox O2 Delivery O2 Flow Rate FiO2 04/24/20 09:19 Room Air 04/24/20 08:00 37.0 59 18 123/70 (87) 94 Room Air 04/24/20 04:00 37.1 58 20 129/76 (93) 96 Room Air 04/24/20 00:00 37.1 55 20 124/75 (91) 96 Room Air 04/23/20 19:59 37.1 57 20 117/67 (84) 98 Room Air 04/23/20 19:25 Room Air 04/23/20 16:12 36.9 55 18 119/65 (83) 95 Room Air 04/23/20 14:35 36.9 04/23/20 14:02 36.7 04/23/20 12:00 36.7 53 20 106/59 (75) 96 Room Air I & O 04/24/20 07:00 Intake Total 3670 ml Balance 3670 ml Capillary Refill : Less Than 3 Seconds General Appearance: No Apparent Distress, WD/WN Neck: Normal Inspection, Non Tender, Supple Respiratory: Normal Breath Sounds, No Accessory Muscle Use, No Respiratory Distress Cardiovascular: Regular Rate, Rhythm, No Edema Gastrointestinal: normal bowel sounds, non tender, soft Extremity: Normal Range of Motion, Other (There is a continued area of the RLE with mild redness, erythema, warmth. No pain with palpation. Mild edema. The area does continue to improve.) Neurologic/Psychiatric: Alert, Oriented x3 Results Lab Laboratory Tests 04/23/20 13:00: Vancomycin Level Trough 8.1L 04/24/20 06:00: Vancomycin Level Trough 21.9H, White Blood Count 9.2, Red Blood Count 4.60, He moglobin 13.5, Hematocrit 40, Mean Corpuscular Volume 87, Mean Corpuscular Hemoglobin 29, Mean Corpuscular Hemoglobin Concent 34, Red Cell Distribution Width 12.9, Platelet Count 271, Mean Platelet Volume 11.2H, Neutrophils (%) (Auto) 66, Lymphocytes (%) (Auto) 19, Monocytes (%) (Auto) 11, Eosinophils (%) (Auto) 4, Basophils (%) (Auto) 0, Neutrophils # (Auto) 6.0, Lymphocytes # (Auto) 1.7, Monocytes # (Auto) 1.1H, Eosinophils # (Auto) 0.4H, Basophils # (Auto) 0.0, Sodium Level 142, Potassium Level 4.0, Chloride Level 108H, Carbon Dioxide Level 22, Anion Gap 12, Blood Urea Nitrogen 11, Creatinine 1.14, Estimat Glomerular Filtration Rate > 60, BUN/Creatinine Ratio 10, Glucose Level 100, Calcium Level 8.9 Microbiology 04/22/20 Blood Culture - Preliminary, Resulted No growth Assessment/Plan Assessment/Plan Assess & Plan/Chief Complaint A 54 year old male with RLE cellulitis VSS WBC WNL Cellulitis improving and no abscess identified Will DC home with PO abx and pain medication Clinical Quality Measures DVT/VTE Risk/Contraindication: Risk Factor Score Per Nursin RFS Level Per Nursing on Admit: 2=Moderate THANG STARR CLERICAL ORDER FILLER Apr 24, 2020 10:43
--- NOTE | 2020-04-24 11:30 | NUR ---
DR. SZYMANSKI HERE TO SEE PATIENT. PLAN FOR DC AFTER VANCOMYCIN THIS AFTERNOON.
[2020-04-24 11:39] VITALS: BP 120/74
[2020-04-24] MEDS ORDERED: TROUGH ORDER-PHARMACY XX NR (13:00)
[2020-04-24] MEDS ORDERED: DOXY100C2 PO (13:46)
[2020-04-24 14:57] VITALS: BP 120/74
== END 2020-04-24 14:50 | disposition home or self-care (01) ==
LOC: EDUNIT# 12:18 → ER 12:20 → 4TH 13:50
PROVIDERS: ADMIT Internal Medicine; ATTEND Internal Medicine
DX: L03.115 Cellulitis of right lower limb (principal)
CPT/HCPCS: 36415; 80048; 80053; 80202; 85025; 87040; 96361; 96365; G0378

== ENCOUNTER 2020-06-20 05:45 | Outpatient (CLI) | payer BC ==
[~2020-06-20] VITALS: Ht 172 cm; Wt 72.7 kg
[~2020-06-20 05:45] MED LIST: DOXY100C2 PO; HYDR-3812 PO; LEVO500T2 PO; SULF1TAB35 PO
== END 2020-06-20 10:02 | disposition home or self-care (01) ==
LOC: PREOP 05:45 → EDSTATUS 09:30 → PREOP 10:02
PROVIDERS: ATTEND Internal Medicine
DX: Z01.818 Encounter for other preprocedural examination (principal)

== ENCOUNTER 2020-06-24 07:32 | Day surgery (SDC) | payer BC ==
--- NOTE | 2020-06-15 17:54 | HISTORY AND PHYSICAL ---
DATE OF SERVICE: COLONOSCOPY HISTORY AND PHYSICAL HISTORY OF PRESENT ILLNESS: The patient is a 54-year-old white male seen for yearly wellness evaluation on 06/09/2020. He had not previously had screening colonoscopy, thus being set up for this. He is deemed to be of average risk as he is not aware of any family history for colon cancer or polyps. He denies any bowel habit change, bright red blood per rectum, melena or abdominal pain. Weight has been stable. PAST MEDICAL HISTORY: Right lower extremity cellulitis. He did require hospitalization on the 22 of April of this year. He has had complete recovery since that time. He reports that he feels well and is on no medication. SOCIAL HISTORY: He works for [employer] with no past smoking history and no history of any significant alcohol use. FAMILY HISTORY: Father is living at the age of 72. He does not know much about his health history. Mother is living at the age of 72 and has no health problems. He has one sister alive and well in her 50s. He is not aware of any family history of malignancy. PHYSICAL EXAMINATION: GENERAL: Reveals a white male, appears to be in no acute distress. HEENT: Unremarkable. Mallampati 1 pharyngeal configuration. NECK: Revealed no JVD, adenopathy or bruits. EARS: Ear canals clear with normal TMs. CHEST: Clear to auscultation. CARDIOVASCULAR: Reveals a regular rate and rhythm without murmur, S3 or S4. ABDOMEN: Soft, supple without mass, organomegaly or tenderness. No bruits are noted. EXTREMITIES: Reveal no cyanosis, clubbing or edema and minimal amount of post-inflammatory hyperpigmentation noted at the site of cellulitis and small scar at the site of abscess I and D. No evidence for infection recurrence. ASSESSMENT: Unremarkable wellness evaluation. After discussing rationale, the patient is set up for screening colonoscopy on 06/24/2020. Prep instructions with Suprep kit were given and questions were answered. Job ID: [id number] DocumentID: [id number] Dictated Date: 06/09/2020 16:09:52 Brim Raiser Date: 06/09/2020 16:24:47 Dictated By: ZHANG SZYMANSKI MD
[2020-06-24] VITALS (14 sets, daily range): BP systolic 78–129; BP diastolic 42–66
[~2020-06-24] VITALS: Ht 172 cm; Wt 72.7 kg
[~2020-06-24 07:32] MED LIST changes: +ACHD5005 PO; -HYDR-3812 PO
[2020-06-24] MEDS ORDERED: ATROPINE INJ 0.4 MG/ML SDV IV ONE (07:33)
[2020-06-24] MEDS ORDERED: D5 LR IV SOLUTION 1,000 ML IV ONE (07:36)
[2020-06-24] MEDS ORDERED: D5 LR IV SOLUTION 1,000 ML IV STA (07:41)
[2020-06-24] MEDS ORDERED: fentaNYL INJECTION 100 MCG/2 ML AMP IVP ONE (07:45)
[2020-06-24] MEDS ORDERED: LIDOCAINE JELLY 2% 6 ML SYRINGE MM PRN (07:45)
[2020-06-24] MEDS ORDERED: LIDOCAINE JELLY 2% 6 ML SYRINGE ONE (08:11)
[2020-06-24] MEDS ORDERED: MIDAZOLAM 5 MG/5 ML (VERSED) VIAL ONE (08:11)
[2020-06-24] MEDS ORDERED: fentaNYL INJECTION 100 MCG/2 ML AMP ONE (08:12)
[2020-06-24] MEDS: MIDAZOLAM 5 MG/5 ML (VERSED) VIAL IV PRN ×4 (08:29→08:45)
[2020-06-24] MEDS ORDERED: ATROPINE 1.2 MG/3 ML (0.4 MG/ML) SYR IV ONE (08:45)
--- NOTE | 2020-06-24 10:19 | Pre-Op Note & Conscious Sedat ---
Pre-Operative Progress Note H&P Reviewed The H&P was reviewed, patient examined and no changes noted. Date H&P Reviewed: Jun 24, 2020 Time H&P Reviewed: 07:55 Conscious Sedation Pre-Proced ASA Score 1 For ASA 3 and 4: Consider anesthesia and medical clearance. Also, for patients with a history of failed moderate sedation consider anesthesia. Airway Lungs Heart ASA score ASA 1: a normal healthy patient ASA 2: a patient with a mild systemic disease (mid diabetes, controlled hypertension, obesity ASA 3: a patient with a severe systemic disease that limits activity (angina, COPD, prior Myocardial infarction) ASA 4: a patient with an incapacitating disease that is a constant threat to life (CHF, renal failure) ASA 5: a moribund patient not expected to survive 24 hrs. (ruptured aneurysm) ASA 6: a declared brain- patient whose organs are being harvested. For emergent operations, add the letter E after the classification Mallampati Classification Grade 1 Sedation Plan Analgesia, Amnesia, Plan communicated to team members, Discussed options with patient/fam, Discussed risks with patient/fam The patient is an appropriate candidate to undergo the planned procedure, sedation, and anesthesia. The patient immediately re-assessed prior to indication. ZHANG SZYMANSKI MD Jun 24, 2020 10:19
--- NOTE | 2020-06-24 18:28 | OPERATIVE REPORT ---
DATE OF SERVICE: COLONOSCOPY SUMMARY INDICATION FOR THE PROCEDURE: Screening colonoscopy. DESCRIPTION OF PROCEDURE: The patient was placed in the left lateral decubitus position. Prior to undergoing colonoscopy, digital rectal evaluation was performed. Anal sphincter tone was normal and the perianal reflexes intact. The prostate was not paolpable on digital inspection. No abnormalities were noted on digital inspection of anal canal or distal rectal vault. The colonoscope was then inserted into the rectum and under direct visualization advanced to cecum. The cecum was identified by identification of the ileocecal valve and cecal strap. Photographic documentation was obtained. Careful inspection was made as the colonoscope was withdrawn. The patient tolerated the procedure well. FINDINGS: There was no evidence for internal or external hemorrhoids and the rectum was unremarkable. Present in the mid sigmoid colon was a diminutive 2 mm sessile polyp. It was biopsied and ablated and submitted for histopathology with no blood loss. No evidence for diverticular disease was appreciated. The remainder of the sigmoid colon, descending colon, splenic flexure, transverse colon, hepatic flexure, ascending colon and cecum were unremarkable. ASSESSMENT: One diminutive polyp was removed via hot forceps from the mid sigmoid colon. This is otherwise normal colonoscopy to the cecum. The quality of prep was good. We will likely be advocating consideration for repeat screening colonoscopy in 10 years as the patient is not aware of any family history of colon cancer. Job ID: [id number] DocumentID: [id number] Dictated Date: 06/24/2020 10:24:35 Customer Complaint Service Supervisor Date: 06/24/2020 18:27:29 Dictated By: ZHANG SZYMANSKI MD MTDD
== END 2020-06-24 09:47 | disposition home or self-care (01) ==
LOC: ENDO 07:32
PROVIDERS: ATTEND Internal Medicine
DX: Z12.11 Encounter for screening for malignant neoplasm of colon (principal); D12.5 Benign neoplasm of sigmoid colon
CPT/HCPCS: 88305